=== PATIENT | female | born 1960 | race Caucasian/White ===

== ENCOUNTER → 2016-07-24 | Outpatient (CLI) | payer MEDICARE ==
[2016-07-24 15:13] VITALS: BP 144/81
== END ==
LOC: MHUC 14:58
PROVIDERS: ATTEND Physician Assistant
DX: Z76.0 Encounter for issue of repeat prescription (principal)
CPT/HCPCS: 99212

== ENCOUNTER → 2016-09-23 | Outpatient (CLI) | payer MEDICARE ==
[~2016-09-23] MED LIST: ALBU6.7H IH; CEPH-507 PO; CITA20TA12 PO; ESTR1TAB24 PO; LEVO50TA10 PO; MEDR2.5T6 PO; VERA240C2
[2016-09-23 16:39] VITALS: BP 145/84
--- NOTE | 2016-09-23 16:39 | Urgent Care T Sheet Gen (E) ---
Intake General Temperature (Fahrenheit): 98.5 Pulse: 99 Blood Pressure Systolic: 145 Blood Pressure Diastolic: 84 Respirations: 18 SPO2: 96 Description of Symptoms Patient presents with 2 issues. First, patient states she pulled a tick off her head approx 2 days ago. States the area is very tender. No warmth or drainage from the area. Next, patient is requesting a refill of her medroxyprogesterone prescription. Patient last received a refill from on Jul 24. She was given a 1 month supply. Patient states she doesn't take it daily as prescribed. States she still has "all her lady parts". Patient can't say where the original prescription came from. History of Present Illness Allergies: Coded Allergies: Codeine (Verified Allergy, 05/08/13) doxycycline (Verified Allergy, 05/08/13) hydrocodone bit (Verified Allergy, 05/08/13) iodine (Verified Allergy, 05/08/13) lovastatin (Verified Allergy, 05/08/13) Home Meds Active Scripts Cephalexin (Keflex)500 Mg [id number] Mg PO QID Infection #28 CAP Ref 0 Prov:CRISTIANO WHITESIDE 09/23/16 Medroxyprogesterone Acet (Medroxyprogesterone Acetate)2.5 Mg Tablet2.5 Mg PO DAILY #30 TAB Prov:CRISTIANO WHITESIDE 07/24/16 Reported Medications Estradiol (Estrace)1 Mg Tablet1 Mg PO DAILY 05/10/13 Citalopram Hydrobromide (Celexa)20 Mg [id number] Mg PO DAILY 05/10/13 Cephalexin (Keflex)500 Mg [id number] Mg PO QID 10 Days 05/10/13 Albuterol Sulfate (Proventil HFA)6.7 Gm Hfa.aer.ad2 Puff IH DAILY 05/10/13 Levothyroxine Sodium (Levothroid)50 Mcg [id number] Mcg PO DAILY 05/08/13 Respiratory Constitutional Symptoms: No syptoms reported EENTM: No symptoms reported Respiratory: No symptoms reported Cardiovascular: No symptoms reported Gastrointestinal/Abdominal: No symptoms reported Skin: Lesions All Other Systems Reviewed Remaining Systems: All other systems reviewed with negative findings Past Mppcaxd-Ruuxhk-Yblekm Hx Patient's Social History Infectious Disease Exposure: No Recent foreign travel: No Immunizations Up to Date Date Pneumonia Vaccine Receive: May 10, 2013 Surgeries/Hospitalizations Hospitalization/Surgery Hx: back surgery Respiratory Respiratory History: None Cardiovascular Comment: pt is very ill at this time, pt very sleepy Neuro/Muscular Comment: pt is very ill at this time, pt very sleepy Genitouinary Comment: pt is very ill at this time, pt very sleepy Gastrointestinal GI/Endocrine History: Thyroid disorder Diabetes Diabetes: No Integumentary Integumentary History: None Cancer History of Cancer?: No Blood Transfusions Hx of Blood transfusions: No Physical Exam Physical Exam General Appearance: WD/WN No apparent distress Respiratory Exam: Normal breath sounds No respiratory distress Cardiovascular Exam: Regular rate, rhythm Skin Exam: Other (there is a pea sized abrasion noted along the R crown of the head. mostly likely from pulling the attached tick off. no target is seen. no warmth or drainage noted from the area. area is tender.) Neurologic/Psychiatric Exam: Oriented times 4 (although does have flighty speech and is difficult to keep on topic) Departure Urgent Care Impression Impression: Primary Impression: Skin abrasion Departure Disposition: 01 HOME OR SELF-CARE Condition: Stable Referrals: ADEBAYO WEI MD (PCP) Additional Instructions: Long discussion with patient regarding symptoms, meds, etc. Reassured the patient that Lyme's disease isn't found in [place]. Her scalp has a small abrasion from pulling the tick off. Is red and very tender. Doesn't have a target surrounding it however I opted to place her on Keflex just in case the area starts to show signs of infection Told the patient that we only give med refills once. I refilled her Medroxyprogesterone on Jul 24 and gave her a 1 month supply. The patient clearly isn't taking her meds as prescribed as a 30 day supply lasted her 60+ days. Suggested she f/u with her PCP for additional meds. Patient states she can't get an appt with his office. I then suggested she see Dr Silveira for hormonal replacement. Patient replied that she is leaving town tonight and can' t. After I discharged the patient, she then asked the gang supervisor for Dr Silveira's number. Unsure what changed her mind but nonetheless, I gave his number. Keflex was called to [facility] as needed Patient understands DC instructions. All questions were answered. Scripts Cephalexin (Keflex)500 Mg [id number] Mg PO QID Infection #28 CAP Ref 0 Prov:CRISTIANO WHITESIDE 09/23/16 End of report . CRISTIANO WHITESIDE Sep 23, 2016 16:02
== END ==
LOC: MHUC 15:27
PROVIDERS: ATTEND Physician Assistant
DX: S00.81XA Abrasion of other part of head, initial encounter (principal); W57.XXXA Bitten or stung by nonvenomous insect and other nonvenomous arthropods, initial encounter
CPT/HCPCS: 99213